=== PATIENT | female | born 1975 | race Caucasian/White ===

== ENCOUNTER 2020-07-30 17:32 | Emergency (ER) | payer OTHER, SELFPAY ==
--- NOTE | 2020-07-30 17:39 | ED.GENADULT ---
HPI - General Adult General Chief complaint: Extremity Injury, Lower Stated complaint: swollen leg / foot Time Seen by Provider: 07/30/20 17:39 Source: patient Mode of arrival: ambulatory Limitations: no limitations Related Data Allergies Allergy/AdvReac Type Severity Reaction Status Date / Time No Known Allergies Allergy Unverified 11/26/17 14:09 Review of Systems Review of Systems: Narrative: CONSTITUTIONAL: Denies fever, chills, or sweats. EYES: Denies visual changes, redness, or discharge. ENT: Denies rhinorrhea, congestion, sore throat, or otalgia. CARDIOVASCULAR: Denies chest pain, palpitations, or edema. RESPIRATORY: Denies cough or dyspnea. GASTROINTESTINAL: Denies abdominal pain, nausea, vomiting, or diarrhea. GENITOURINARY: Denies dysuria or hematuria. SKIN: Denies rash or itching. MUSCULOSKELETAL: Denies back pain, joint pain, or myalgia. NEUROLOGIC: Denies headache, numbness, or weakness. PSYCHIATRIC: Denies anxiety or depression. PMFSH Comments At the time of my signature I agree with nursing past medical history, surgical, social, and family history. There is no relevant family history pertinent to the presenting complaint. Exam Narrative: Exam Narrative: Normal adult exam Course Vital Signs Vital signs: Vital signs reviewed Medical Decision Making Differential Diagnosis Differential Diagnosis: Differential diagnosis: Foot fracture, crush injury, compartment syndrome, contusion, sprain, tendinitis,lisfranc sprain or fracture, avulsion fracture, grown toenail, diabetic ulcer. Critical Care Time Critical Care Time Critical Care Time: No
== END 2020-07-30 17:40 | disposition left against medical advice (07) ==
LOC: EXPBETH 17:35
PROVIDERS: Emergency Provider Nurse Practitioner Family
DX: Z53.21 Procedure and treatment not carried out due to patient leaving prior to being seen by health care provider (principal)
CPT/HCPCS: 99199

== ENCOUNTER 2022-01-03 15:21 | Emergency (ER) | payer OTHER, SELFPAY ==
--- NOTE | 2022-01-03 15:27 | ED.SKABFB ---
HPI - Skin/Abscess/Foreign Bdy General Chief complaint: Skin/Abscess/Foreign Body Stated complaint: Skin Sore Time Seen by Provider: 01/03/22 15:27 Source: patient and RN notes reviewed History of Present Illness HPI narrative: Patient is a 46-year-old female who presents the urgent care with complaints of an open draining wound to the medial right heel. Patient states that she was fishing approximately 1 week ago and felt something bite her and now the area has been opened and draining for the last week. Patient states it did initially seem to get better but now seems to be getting worse and more painful with walking. Patient has been cleaning out with peroxide and using triple antibiotic ointment. Denies any fevers, nausea or vomiting. No other acute complaints. Patient does state that she does have history of drug abuse however did not use that area to shoot up . No acute distress noted. Patient aware of the plan of care. Some parts of this dictation were generated by voice recognition software and may contain typographical and/or grammatical inaccuracies. Related Data Allergies Allergy/AdvReac Type Severity Reaction Status Date / Time No Known Allergies Allergy Unverified 11/26/17 14:09 Review of Systems Review of Systems: CONSTITUTIONAL: Denies fever, chills, or sweats. EYES: Denies visual changes, redness, or discharge. ENT: Denies rhinorrhea, congestion, sore throat, or otalgia. CARDIOVASCULAR: Denies chest pain, palpitations, or edema. RESPIRATORY: Denies cough or dyspnea. GASTROINTESTINAL: Denies abdominal pain, nausea, vomiting, or diarrhea. GENITOURINARY: Denies dysuria or hematuria. SKIN: Reports of a painful open wound to the right heel MUSCULOSKELETAL: Denies back pain, joint pain, or myalgia. NEUROLOGIC: Denies headache, numbness, or weakness. All other systems reviewed are negative, except as documented in HPI. PMFSH Comments At the time of my signature, I reviewed and agree with the nursing past medical, surgical, social, and family history. There is no relevant family history pertinent to the patient complaint. Exam Narrative: GENERAL: This is a well-nourished, well-developed patient, in no apparent distress. HEAD: normocephalic, atraumatic. EYES: PERRL. Sclera clear/white. Vision is grossly intact. EARS: External ears normal NOSE: External nose normal with no obvious nasal discharge, nares without redness, no rhinorrhea. THROAT: Mucous membranes moist NECK: Neck supple SKIN: 4 x 4 centimeter of erythema surrounding a 0.5 cm stage II open wound with scant serosanguineous yellow drainage to the medial aspect of the right heel. Warm, intact with no suspicious lesions or rash, good texture and turgor. NEURO: awake, alert, and oriented to person, place and time. There were no obvious focal neurologic abnormalities. EXTREMITIES: No clubbing, cyanosis, or edema. Course Course Level of Care: Express Care Visit Vital Signs Vital signs: Vital Signs Temperature 98.0 F 01/03/22 15:28 Pulse Rate 72 01/03/22 15:28 Respiratory Rate 20 01/03/22 15:28 Blood Pressure 85/63 L 01/03/22 15:28 Pulse Oximetry 100 01/03/22 15:28 Oxygen Delivery Room Air 01/03/22 15:28 Temperature 98.0 F 01/03/22 15:28 Pulse Rate 72 01/03/22 15:28 Respiratory Rate 20 01/03/22 15:28 Blood Pressure 85/63 L 01/03/22 15:28 Pulse Oximetry 100 01/03/22 15:28 Oxygen Delivery Room Air 01/03/22 15:28 Reviewed MDM - Skin/Abscess/Foreign Bdy MDM Narrative Medical decision making narrative: Advised patient to complete the oral antibiotic regimen as prescribed. Be sure to eat and drink with medication. Use plain Dial soap and water to clean the wound and apply a thin layer of Polysporin and wet to dry gauze covering with an Niles wrap to keep the wound clean. Change twice a day. If you develop any increase in symptoms associated with severe pain, streaking of redness from the wound, increased drainage,
[2022-01-03 15:28] VITALS: BP 85/63; PULSE 72; RESP 20; TEMP 36.7; O2SAT 100
== END 2022-01-03 15:51 | disposition home or self-care (01) ==
PROVIDERS: Emergency Provider Nurse Practitioner Family
DX: S91.301A Unspecified open wound, right foot, initial encounter (principal)
CPT/HCPCS: 99213; G0463

== ENCOUNTER 2024-12-24 19:04 | Emergency (ER) | payer OTHER, SELFPAY ==
--- OUTSIDE RECORDS SUMMARY | 2012-09-08 11:30 | XMS_ITS | Continuity of Care Document ---
Author Organization [employer] Address [address] [place] [address] Phone Care Team Providers Care Ceo And Founder Name Role Phone Kassy Baldwin NP Unavailable Unavailable Allergies, Adverse Reactions, Alerts Substance Reaction Status Criticality No Known allergies Medications Medication Instructions Dosage Effective Dates (start - stop) Status Comments ibuprofen 800 mg tablet take 1 tablet (800MG) by oral route 3 times every day with food as needed for pain - Active cephalexin 500 mg tablet take 1 tablet (500MG) by oral route every 6 hours 500 MG - Active Diflucan 150 mg tablet take 1 tablet (150MG) by oral route once - Active hydrocodone-acetam inophen 10 mg-500 mg tablet take 1 tablet by oral route twice a day as needed for pain - Active ProAir HFA 90 mcg/actuation Aerosol Inhaler inhale 2 puff by inhalation route every 4 - 6 hours as needed - Active hydrocodone-acetam inophen 10 mg-500 mg tablet take 1 tablet by oral route twice a day as needed for pain - No Longer Active Diflucan 150 mg tablet take 1 tablet (150MG) by oral route once - No Longer Active Procedures Procedure Date OFFICE/OUTPATIENT VISIT, EST Drug screen multi drug class OFFICE/OUTPATIENT VISIT, EST OFFICE/OUTPATIENT VISIT, EST INFLUENZA ASSAY W/OPTIC INFLUENZA ASSAY W/OPTIC Drug screen multi drug class OFFICE/OUTPATIENT VISIT, EST OFFICE/OUTPATIENT VISIT, EST OFFICE/OUTPATIENT VISIT, EST DRUG SCREEN, SINGLE OFFICE/OUTPATIENT VISIT, EST DRUG SCREEN, SINGLE OFFICE/OUTPATIENT VISIT, EST DRUG SCREEN, SINGLE OFFICE/OUTPATIENT VISIT, EST DRUG SCREEN, SINGLE OFFICE/OUTPATIENT VISIT, EST URINALYSIS, AUTO W/SCOPE OFFICE/OUTPATIENT VISIT, EST OFFICE/OUTPATIENT VISIT, EST OFFICE/OUTPATIENT VISIT, EST COMPLETE CBC W/AUTO DIFF WBC DRUG SCREEN, SINGLE OFFICE/OUTPATIENT VISIT, EST DRAIN/INJECT, JOINT/BURSA Triamcinolone acetonide inj OFFICE/OUTPATIENT VISIT, EST OFFICE/OUTPATIENT VISIT, NEW X-RAY EXAM OF SHOULDER Intraoral Periapical First Colt 11 Limit Oral Eval-prob Focused Intraoral Periapical First Colt 11 Extraction, Erupted Tooth Or Exposed Desi t (Elevati Extraction, Erupted Tooth Or Exposed Desi t (Elevati Intraoral Periapical First Colt 11 Limit Oral Eval-prob Focused Advance Directives Directive Yes / No Effective Date File Name No Information Encounters Encounter Description Practice Location Reason(s) For Visit Diagnoses Date Provider Providers Copied on Encounter OFFICE/OUTPA TIENT VISIT, [facility] [employer] [employer], [address], [place], [place], [id number], [place] tel:[phone] [facility] Pain in joint involving shoulder regionAsthmaBreas t dischargeBreast pain 3 Nicolasa Elena. [address] [place], [address], [place]. tel:[phone] OFFICE/OUTPA TIENT VISIT, [facility] [facility], [address], [place], [place], [address], [place] tel:[phone] [facility] No Information 3 [place] K[address]. [address] [place], [address], [place]. tel:[phone] [facility], [address], [place], [place], [address], [place] tel:[phone] [facility] No Information 3 [place] K[address]. [address] [place], [address], [place]. tel:[phone] OFFICE/OUTPA TIENT VISIT, [facility], [address], [place], [place], [id number], [place] tel:[phone] [facility] No Information 3 [place] Kassy. [address], [place], [place], [place]. tel:[phone] OFFICE/OUTPA TIENT VISIT, [facility], [address], [place], [place], [address], [place] tel:[phone] [facility] No Information 2 [place] Kassy. [address], [place], [place], [place]. tel:[phone] OFFICE/OUTPA TIENT VISIT, [facility], [address], [place], [place], [address], [place] tel:[phone] [facility] No Information 2 [place] [address]. [address] [place], [address], [place]. tel:[phone] OFFICE/OUTPA TIENT VISIT, [facility], [address], [place], [place], [address], [place] tel:[phone] [facility] No Information 3 0-201 2 [place] [address]. [address] [place], [address], [place]. tel:[phone] OFFICE/OUTPA TIENT VISIT, [facility], [address], [place], [place], [address], [place] tel:[phone] [facility] No Information 6-201 2 [place] [address]. [address] [place], [address], [place]. tel:[phone] OFFICE/OUTPA TIENT VISIT, [facility], [address], [place], [place], [address], [place] tel:[phone] [facility] No Information 2 [place] [address], [place], [place], [place]. tel:[phone] OFFICE/OUTPA TIENT VISIT, [facility], [address], [place], [place], [address], [place] tel:[phone] [facility] No Information August-0 1-201 2 [place] [address] [place], [address], [place]. tel:[phone] OFFICE/OUTPA TIENT VISIT, [facility], [address], [place], [place], [address], [place] tel:[phone] [facility] No Information 0 3-201 2 [place]. [address], [place], [place], [place]. tel:[phone] OFFICE/OUTPA TIENT VISIT, [facility], [address], [place], [place], [address], [place] tel:[phone] [facility] No Information 7-201 2 [place] [address]. [address] [place], [address], [place]. tel:[phone] OFFICE/OUTPA TIENT VISIT, [facility], [address], [place], [place], [address], [place] tel:[phone] [facility] No Information 1 Nicolasa Elena. [address] [place], [address], [place]. tel:[phone] OFFICE/OUTPA TIENT VISIT, [facility], [address], [place], [place], [address], [place] tel:[phone] [facility] No Information 1 Nicolasa Elena. [address] [place], [address], [place]. tel:[phone] OFF[facility]PA [facility]IT, [facility], [address], [place], [place], [address], [place] tel:[phone] [facility] No Information 1 Jimmie Larkin. [address] [place] [address], [facility], . tel:[phone] Referring Provider: Trae Mendez, [address] [place] [address], [facility]. tel:[phone] OFFICE/OUTPA TIENT VISIT, [facility], [address], [place], [place], [address], [place] tel:[phone] [facility] No Information 1 iNcolasa Elena. [address] [place], [address], [place]. tel:[phone] OFFICE/OUTPA [facility]ENT VISIT, [facility], [address], [place], [place], [address], [place] tel:[phone] [facility] No Information 1 Nicolasa Elena. [address] [place], [address], [place]. tel:[phone] [facility], [address], [place], [place], [address], [place] tel:[phone] [facility] Dental examination Sep-0 8201 1 Alexanderanne Loretta. [address], [place], [place], [address], . tel:[phone] Referring Provider: Loretta Sharma, [address], [place], [address]. tel:[phone] [facility], [address], [place], [place], [address], tel:[phone] [facility] Dental examination Aug-3 0201 1 Alexanderanne Loretta. [address], [place], [place], [address], . tel:[phone] Referring Provider: Loretta Sharma, [address], [place], [address]. tel:[phone] [facility], [address], [place], [place], [address], tel:[phone] [facility] Dental examination Nov-2 4201 1 David Burgos. [address], [place], [place], [address], . tel:[phone] Referring Provider: Loretta Sharma, [address], [place], [address]. tel:[phone] Family History Family Member Type Diagnosis Age At Onset No Information Payers Payer name Insurance type Covered democrat ID Jerry zuniga(s) [place] Medicaid [id number] Social History Type Description Quantity Date Captured Comments Alcohol Use Details No Caffeine Use Details tea and soda > 32oz per day 13 Tobacco Use Status Smoking Status No Information Smoking Tobacco Use Details Cigarette: Years Used 10 Cigarette: 20 Packs per day, Pack Year: 200 Sex Female Vital Signs Date / Time: Height Weight BMI Pulse Rate Blood Pressure Temperature Respiratory Rate Body Surface Area Head Circumference Head Circ. Percentile Wt./Yonatan. Percentile BMI percentile Pulse Ox Inhaled Ox 1:25 PM 63.00 in 176.40 lbs 31.2 4 kg/m eter (2) 76 /min 110/76 mm[Hg] 98.00 F 18 /min 1.88 meter(2) Chief Complaint And Reason For Visit No Information Reason For Referral Reason For Referral No Information Plan Of Treatment Date Type Action Status Goal Tobacco cessation counseling completed Referral Referred To: Lourdes Coleman MD [address] [place], [phone] Ordered: Referral: Lourdes Coleman MD. Appointment date/timeframe: 09/27/2012 ordered History Of Present Illness Encounter Date Complaint History Of Prese nt Illness Left breast pain with drainage a nd swelling Functional Status Date Functional Assessmen t Pain Score 8/10 Pain Score 8/10 Instructions Date Instruction Additional Infor mation No Information Assessments Type Assessment Date No Information Mental Status Date Cognitive Assessment Orientation - [place] ed to time, place, person, situation. Patient Care Teams Name Effective Dates (start - stop) Status Members No Information
--- NOTE | ~2024-12-24 | XR_ITS ---
EXAMINATION: XR forearm RT 2V DATE: 12/24/2024 19:31 INDICATION: Generalized right forearm pain and swelling TECHNIQUE: AP an lateral views of the right forearm were obtained. COMPARISON: none FINDINGS: Bone alignment is normal. No fracture. 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 No periosteal reaction or cortical erosions to suggest osteomyelitis. Small likely enthesopathic heterotopic ossicle at the distal humeral lateral epicondyle. Diffuse soft tissue swelling and subcutaneous edema throughout the right forearm extending over the dorsum of the hand consistent with cellulitis. Suggestion of a skin ulceration at the radial aspect of the wrist with small amount of underlying the soft tissue gas at the dorsal aspect of the wrist and carpus. The relative lucencies in the subcutaneous tissues extending proximally along the forearm, unclear whether this represents additional soft tissue gas or subcutaneous fat accentuated by surrounding edema. IMPRESSION: 1. Small amount of soft tissue gas at the wrist and carpus which may relate to a deep ulceration near this location. There are some additional scattered lucencies in the subcutaneous tissues of the more proximal forearm, unclear where this originates additional soft tissue gas or fat surrounded by edema. Differential includes necrotizing fasciitis which is ultimately a clinical diagnosis. I attempted to contact the provider over the expected location is now closed. Per review of the documentation in the medical record the patient was advised to proceed to the emergency department. I spoke with Dr. Reeder in the emergency department. The ED will attempt to contact the patient or convey the potential emergent nature of the findings and need for ER evaluation. 2. No acute osseous abnormality. Reviewed, dictated and finalized at location A. IMPRESSION: 1. Small amount of soft tissue gas at the wrist and carpus which may relate to a deep ulceration near this location. There are some additional scattered lucen cies in the subcutaneous tissues of the more proximal forearm, unclear where th is originates additional soft tissue gas or fat surrounded by edema. Differenti al includes necrotizing fasciitis which is ultimately a clinical diagnosis. I a ttempted to contact the provider over the expected location is now closed. Per review of the documentation in the medical record the patient was advised to pr oceed to the emergency department. I spoke with Dr. Reeder in the emergency department. The ED will attempt to contact the patient or convey the potential emergent nature of the findings and need for ER evaluation. 2. No acute osseous abnormality.
--- OUTSIDE RECORDS SUMMARY | 2024-12-24 19:07 | XMS_ITS | Clinical Summary ---
Author Organization [facility] Address [address] [place] [address] [place] [address] Care Team Providers Care Manager Investigations Name Role Phone Unavailable Primary Care Provider Unavailabl e Source Comments [facility],non-owned Affiliates and Associated Physician Practices is amultiple site organization consisting of ambulatory clinics and hospital sitesin [place], [place], [place] and [place]. This disclosure is being madepursuant to the Care Everywhere program and may not contain all information available regarding this patient. 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 Gender Identity Not on file Sexual Orientation Not on file Plan of Treatment Health Maintenance Due Date Last Done Comments COLOGUARD (AGES 45-75) - COL ON CA SCREENING 1973 COLON MONITORING 1973 COLONOSCOPY - COLON CA SCREENING 1973 CT COLONOGRAPHY - COLON CA SCREENING 1973 Colorectal Cancer Screening 1973 FIT - COLON CA SCREENING 1973 FLEX SIG - COLON CA SCREENING 1973 LIPID TESTING 1973 MAMMOGRAM 1973 HIV SCREENING 1988 HEPATITIS C SCREENING 12/02/1991 DTAP/TDAP/TD VACCINES (1 - Tdap) 1992 HEPATITIS B VACCINE (1 of 3 - 19+ 3-dose series) 1992 PNEUMOCOCCAL VACCINE 50+ (1 of 1 - PCV) 12/07/2023 ZOSTER VACCINE (1 of 2) 12/07/2023 COVID-19 VACCINE (1 - 2023-2 5 season) 2023 DEPRESSION SCREENING 04/26/2024 INFLUENZA VACCINE (#1) 2024 HIB VACCINE Aged Out No longer eligi ble based on patient's age to complete this topic HPV VACCINE Aged Out No longer eligi ble based on patient's age to complete this topic MENINGOCOCCAL (Group B) VACC INE SHARED DECISION-MAKING Aged Out No longer eligibl e based on patient's age to complete this topic MENINGOCOCCAL GROUPS A/C/Y/W VACCINE Aged Out No longer eligible b ased on patient's age to complete this topic Insurance
--- OUTSIDE RECORDS SUMMARY | 2024-12-24 19:07 | XMS_ITS | Clinical Summary ---
Author Organization [facility] Address [address] [place] [address] Phone Care Team Providers Care Venereal Disease Investigator Name Role Phone Provider, None Primary Care Provider Unavailabl e Allergies No known active allergies Medications naloxone HCl (Narcan) 4 MG/0.1ML Liquid 1 Voca by Nasal route once as needed for Other (Respirator y failure/opi oid overdose) for up to 1 dose. 2 Each 1 04/08/2022 Active Active Problems Problem Noted Date Diagnosed Date Cellulitis of right lower extremity 08/21/2020 Dental infection 07/06/2018 Social History Tobacco Use Types Packs/Day Years Used Date Smoking Tobacco: Every Day Cigarettes Smokeless Tobacco: Never Alcohol Use Standard Drinks/Week Comments No 0 (1 standard drink = 0.6 oz pur e alcohol) Comments No Sex and Gender Information Value Date Recorded Sex Assigned at Not on file Legal Sex Female 9:16 PM CDT Gender Identity Not on file Sexual Orientation Not on file Last Filed Vital Signs Vital Sign Reading Time Taken Comments Blood Pressure 112/65 04/08/2022 12:11 AM LIFTER Pulse 92 04/07/2022 6:03 PM LIFTER Temperature 36.8 C (98.2 F) 04/07/2022 6:03 PM LIFTER Respiratory Rate 16 04/07/2022 6:03 PM LIFTER Oxygen Saturation 97% 04/07/2022 6:03 PM LIFTER Inhaled Oxygen Concentration - - Weight 72.6 kg (160 lb) 04/07/2022 6:03 PM LIFTER Height 160 cm (5' 3) 04/07/2022 6:03 PM LIFTER Body Mass Index 28.34 04/07/2022 6:03 PM LIFTER Plan of Treatment Health Maintenance Due Date Last Done Comments Hepatitis C Virus (HCV) Screening 1973 TdaP Immunization 1973 Hepatitis B Immunization (1 of 3 - 19+ 3-dose series) 1992 Pap Smear 1994 Cervical Cancer Screening (CCS) 12/07/2003 HPV/Cotest 12/07/2003 Cologuard 2018 Colonoscopy 2018 Colorectal Cancer Screening 2018 Immunochemical Fecal Occult Blood 2018 Pneumococcal Immunization (5 0+ years) (1 of 1 - PCV) 12/07/2023 Zoster Immunization (1 of 2) 12/07/2023 SARS-COV-2 Immunization (1 - 2023- season) 2023 Influenza Immunization (#1) 2024 Respiratory Syncytial Virus (RSV) Immunization (Adult) (1 - 1-dose 75+ series) 2048 Human Papillomavirus (HPV) Immunization Aged Out No longer eligible b ased on patient's age to complete this topic Meningococcal Immunization (ACWY) Aged Out No longer eligible based on patient's age to complete this topic Rotavirus Immunization Aged Out No lo nger eligible based on patient's age to complete this topic Insurance MEDICAID [place] Advance Directives * Full Code (Latest Code Status on File) Date Activated Date Inactivated Comments 08/20/2020 9:23 PM 08/24/2020 1:52 PM CPR-Full Indu tment: FULL ARREST: Attempt Resuscitation/CPR wit intubation and mechanical ventilation. PRE-ARREST: Use entire range of life support measures to stabilize the patient. Care Teams Venereal Disease Investigator Relationship Specialty Start Date End Date Provider, None [place] PCP - General 11/28/21
--- OUTSIDE RECORDS SUMMARY | 2024-12-24 19:07 | XMS_ITS | Encounter Summary ---
Author Organization [facility] Address [address] [place] [address] Care Team Providers Care Counter Tacker Name Role Phone No, Physician Primary Care Provider [phone] Hafsa Jackson Unavailable Unavailable No, Physician Primary Care Provider [phone] Mckinley Coronado MD Unavailable [phone] Encounter Details Date Type Department Care Team (Late st Contact Info) Description 08/17/2019 [facility] Outreach [facility] Warm Hand Off Program [address] [place], [place] [phone] Letty Rogers Social History Tobacco Use Types Packs/Day Years Used Date Smoking Tobacco: Every Day Cigarettes Smokeless Tobacco: Never Alcohol Use Standard Drinks/Week Comments No 0 (1 standard drink = 0.6 oz pur e alcohol) PHQ-2 Answer Date Recorded PHQ-2 Total Score (If total score is 3 or more points, staff should administer the PHQ-9) 2 06/29/2019 Comments No Sex and Gender Information Value Date Recorded Sex Assigned at Not on file 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
[2024-12-24 19:13] VITALS: BP 148/80; PULSE 101; RESP 20; TEMP 37.2; O2SAT 100
--- NOTE | 2024-12-24 19:31 | ED.UPPEXIN ---
HPI - Extremity Injury (Upper) General Chief Complaint: Extremity Injury, Upper Stated Complaint: Right arm pain Source: patient Mode of arrival: ambulatory Limitations: no limitations History of Present Illness HPI narrative: 49 y/o female presented for c/o right arm pain. Onset yesterday. Says she bumped the right arm on a metal railing which hurt the arm. Says the pain was worsened after she lifted a box of tasha litter and felt a 'snap.' Denies numbness, tingling or weakness. She endorses more swelling to the right arm than normal. 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 Has not used IV drugs in 6 months. Pt says both wrists have chronic decreased ROM due to the wounds as well. Related Data Allergies Allergy/AdvReac Type Severity Reaction Status Date / Time No Known Allergies Allergy Verified 12/24/24 19:18 Review of Systems Review of Systems: CONSTITUTIONAL: Denies body aches, fever, chills EYES: Denies visual changes ENT: Denies rhinorrhea, congestion CARDIOVASCULAR: Denies chest pain, palpitations, or edema. RESPIRATORY: Denies cough or dyspnea. SKIN: reports chronic wounds. MUSCULOSKELETAL: reports RUE pain NEUROLOGIC: Denies numbness, tingling, or weakness. All systems reviewed & are unremarkable except as noted in HPI and below PMFSH Social History Social History (Updated 12/24/24 @ 20:22 by Kady Larios, BIENVENIDO) Substance use: former Substance use type: IV drugs Last use: Last IVDA approx 05/2024 Comments At time of signature, I have reviewed and agree with nursing past medical, surgical, social and family history unless otherwise noted. Please see nursing chart for further information. There is no relevant family history pertinent to the presenting complaint Exam Narrative: GENERAL: Well-appearing in no acute distress. CHEST: Speaks in full sentences. No respiratory distress. HEART: Regular rate and rhythm. Normal and equal peripheral pulses. EXTREMITIES: Bilateral wrists have limited ROM, fixed in flexion due to the chronic dorsal wounds. Right dorsal wound deep, approx 5cm diameter, no active drainage, dried blood noted, dry wound bed with scattered scabs and distal area of 0.5cm green discoloration. Right forearm 3+ edema noted extending into the digits. No significant induration or warmth. Digits have decreased ROM right hand due to swelling. Right forearm tender with palpation at mid ulna. Left dorsal wound [id number], scabbed areas noted, dried blood noted. No swelling noted to left hand/arm. pulses palpable and equal bilaterally, skin warm, dry, pink. Capillary refill less than 3 seconds. SKIN: As above. Bilateral forearm scarring noted. NEURO: Alert and oriented x3. PSYCH: Normal mood and affect Course Course Emergency Course: Patient is aware of diagnosis, understands and agrees to treatment plan. Anticipatory guidance given. Patient agrees to follow-up as directed and is aware of reasons to seek care at the emergency department. Portions of this record may have been created with voice recognition software Level of Care: Express Care Visit Vital Signs Vital signs: Vital Signs Temperature 98.9 F 12/24/24 19:13 Pulse Rate 101 H 12/24/24 19:13 Respiratory Rate 20 12/24/24 19:13 Blood Pressure 148/80 H 12/24/24 19:13 Pulse Oximetry 100 12/24/24 19:13 Oxygen Delivery Room Air 12/24/24 19:13 Temperature 98.9 F 12/24/24 19:13 Pulse Rate 101 H 12/24/24 19:13 Respiratory Rate 20 12/24/24 19:13 Blood Pressure 148/80 H 12/24/24 19:13 Pulse Oximetry 100 12/24/24 19:13 Oxygen Delivery Room Air 12/24/24 19:13 Reviewed MDM - Extremity Injury (Upper) MDM Narrative Medical decision making narrative: Discussed physical exam findings Pt with significant swelling to right forearm extending to the hand surrounding the deep dorsal wrist wound most c/w cellulitis. Advised ER transfer for cellulitis. Pt does not want to wait for the result of the forearm xray to be read at this time. No apparent fracture noted on soft read. She declines ER transfer as well. Pt will be notified when the final results are available. v/u. Rx doxy sent. Agreeable to sign AMA. The patient is clinically sober, AA&Ox3, free from distracting injury. 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 Given the patients presentation, we communicated our concern for cellulitis in laymans terms. The patient verbalized an understanding. The patient is aware the evaluation is incomplete & many troublesome conditions have not been r/o. We have discussed the need for further ED workup. We have discussed the range of possible dx, potential testing & treatment options. Weve made efforts to prevent the pt from leaving AMA. Our discussions included the potential outcomes of leaving AMA, including worsening of their condition, becoming permanently disabled/in pain/critically ill, or . Despite these efforts, we were unable to convince the pt to go to the ER. We have attempted to offer tx/rx/guidance for any dangerous conditions which are most likely and/or dangerous. We have answered all questions and have implored the patient to go to ER [facility] to complete the w/u. A staff member witnessed the patient consenting to AMA. Differential Diagnosis Differential diagnosis: Likely sprain and strain of wrist, fracture of wrist and other (forearm fracture, tendonitis, osteomyelitis, cellulitis) Discharge Plan Discharge Clinical Impression: Cellulitis of arm, right Patient Disposition: Left Against Medical Advice Condition: Stable Instructions: Antibiotic Form Patient Language: [place] Prescriptions: New doxycycline hyclate 100 mg tablet 100 mg PO BID 10 Days Qty: 20 0RF Follow-up/Referrals: PHYSICIAN,SCHOOL PSYCHOLOGY SPECIALIST [Primary Care Provider, Internal Medicine] Time of Disposition: 20:19
== END 2024-12-24 20:22 | disposition left against medical advice (07) ==
PROVIDERS: Emergency Provider Nurse Practitioner Family
DX: L03.113 Cellulitis of right upper limb (principal)
CPT/HCPCS: 73090; 99213; G0463